=== PATIENT | male | born 1985 | race Caucasian/White ===

== ENCOUNTER 2016-05-04 15:39 | Emergency (ER) | payer SELFPAY ==
[2016-05-04 15:52] VITALS: BP 151/88
--- NOTE | 2016-05-04 15:57 | ER Document Report ---
ED Medical Screen (RME) - General Stated Complaint: ABDOMINAL/L LEG PAIN Mode of Arrival: Ambulatory Information source: Patient Notes: Patient presents to the emergency department complaints of right-sided abdominal pain possible abscess. Denies history of MRSA. Also reports sciatic pain. Patient is morbidly obese, right side of abdomen is more firm, ttp, no obvious pustule. I have greeted and performed a rapid initial assessment of this patient. A comprehensive ED assessment and evaluation of the patient, analysis of test results and completion of the medical decision making process will be conducted by additional ED providers. Physical Exam - Vital signs Vitals: Temp Pulse Resp BP Pulse Ox 98.4 F 105 H 24 H 151/88 H 92 05/04/16 15:51 05/04/16 15:51 05/04/16 15:51 05/04/16 15:51 05/04/16 15:51 Course - Vital Signs Vital signs: Temp Pulse Resp BP Pulse Ox 98.4 F 105 H 24 H 151/88 H 92 05/04/16 15:51 05/04/16 15:51 05/04/16 15:51 05/04/16 15:51 05/04/16 15:51
[2016-05-04 16:12] LABS: ABSOLUTE EOSINOPHILS # (AUTO) 0.1 10^3/uL (0.0-0.6); ABSOLUTE MONOCYTES (AUTO) 0.6 10^3/uL (0.1-1.4); ABSOLUTE NEUT (AUTO) 3.7 10^3/uL (1.7-8.2); BASOPHILS % (AUTO) 0.9 % (0-2); HEMATOCRIT 49.7 % (37.9-51.0); HGB HCT DIFFERENCE -1.7; LYMPHOCYTES % (AUTO) 18.2 % (13-45); MEAN CORPUSCULAR HEMOGLOBIN 29.1 pg (27.0-33.4); MEAN CORPUSCULAR HGB CONC 32.1 g/dL (32.0-36.0); MEAN CORPUSCULAR VOLUME 91 fl (80-97); MONOCYTES % (AUTO) 10.8 % (3-13); RED BLOOD COUNT 5.49 10^6/uL (4.35-5.55); RED CELL DISTRIBUTION WIDTH 17.3 % (11.5-14.0); SEGMENTED NEUTROPHILS % (AUTO) 69.1 % (42-78); WHITE BLOOD COUNT 5.3 10^3/uL (4.0-10.5)
[2016-05-04 18:32] LABS: BLOOD UREA NITROGEN 13 mg/dL (7-20); CALCIUM 9.7 mg/dL (8.4-10.2); CREATININE RESULT 0.84 mg/dL (0.52-1.25); GLUCOSE 87 mg/dL (75-110)
[2016-05-04 18:33] LABS: ALANINE AMINOTRANSFERASE 64 U/L (21-72); ALBUMIN 3.9 g/dL (3.5-5.0); ALKALINE PHOSPHATASE 82 U/L (38-126); ANION GAP 10 (5-19); ASPARTATE AMINO TRANSFERASE 56 U/L (17-59); BILIRUBIN,DIRECT 0.1 mg/dL (0.0-0.4); BILIRUBIN,TOTAL 0.7 mg/dL (0.2-1.3); CARBON DIOXIDE 35 mmol/L (22-30); CHLORIDE 98 mmol/L (98-107); POTASSIUM 4.2 mmol/L (3.6-5.0); SODIUM 142.9 mmol/L (137-145)
--- NOTE | 2016-05-04 19:46 | ER Document Report ---
ED GI/ - General Chief Complaint: Abscess Stated Complaint: ABDOMINAL/L LEG PAIN Time seen by provider: 19:41 Mode of Arrival: Ambulatory Information source: Patient Notes: 32-year-old male presents to ED for complaint of right-sided abdominal pain states the right side of his abdomen is former than the left. Also complaining of sciatic pain and a left knee pain. He states he's been told that he has a left anterior cruciate ligament tear but has not been fixed yet. His abdominal pain has been coming and going for the last 4-5 months worse for the last 2-3 weeks. This is an extremely obese man weighing 271.2 kg which is approximately 597 pounds TRAVEL OUTSIDE OF THE [place] IN LAST 30 DAYS: No - HPI Patient complains to provider of: Abdominal pain, Other - Chronic sciatic pain Onset: Other - Chronic Timing/Duration: Gradual Severity at maximum: Moderate Severity in ED: Moderate Pain Level: 4 Location: RUQ, RLQ Associated symptoms: Other - Swelling feet, back pain with sciatica. denies: Diarrhea, Nausea, Vomiting Exacerbated by: Movement, Walking Relieved by: Denies Similar symptoms previously: Yes Recently seen / treated by doctor: No - Related Data Allergies/Adverse Reactions: No Known Allergies Allergy (Unverified 05/04/16 15:55) Past Medical History - General Information source: Patient - Social History Smoking Status: Never Smoker Cigarette use (# per day): No Chew tobacco use (# tins/day): No Smoking Education Provided: No Frequency of alcohol use: Rare Drug Abuse: None Occupation: none Lives with: Family Family History: Reviewed & Not Pertinent Patient has suicidal ideation: No Patient has homicidal ideation: No - Past Medical History Cardiac Medical History: Reports: None, Hx Congestive Heart Failure, Other - States he's been told he has were around his heart and lungs Pulmonary Medical History: Reports: None EENT Medical History: Reports: None Neurological Medical History: Reports: None Endocrine Medical History: Reports: None Renal/ Medical History: Reports: Other - States he's been told he has kidney disease but not what type Malignancy Medical History: Reports None GI Medical History: Reports: None Musculoskeltal Medical History: Reports Hx Musculoskeletal Trauma, Reports Other - Swelling to bilateral feet with fungal infection Skin Medical History: Reports None Psychiatric Medical History: Reports: None Traumatic Medical History: Reports: None Infectious Medical History: Reports: None Past Surgical History: Reports: Hx Orthopedic Surgery - Right anterior cruciate ligament repair - Immunizations Immunizations up to date: Yes Hx Diphtheria, Pertussis, Tetanus Vaccination: Yes Review of Systems - Review of Systems Constitutional: No symptoms reported EENT: No symptoms reported Cardiovascular: No symptoms reported Respiratory: No symptoms reported Gastrointestinal: Abdominal pain. denies: Diarrhea, Nausea, Vomiting Genitourinary: No symptoms reported Male Genitourinary: No symptoms reported Musculoskeletal: No symptoms reported Skin: No symptoms reported Hematologic/Lymphatic: No symptoms reported Neurological/Psychological: No symptoms reported Physical Exam - Vital signs Vitals: Temp Pulse Resp BP Pulse Ox 98.4 F 105 H 24 H 151/88 H 92 05/04/16 15:51 05/04/16 15:51 05/04/16 15:51 05/04/16 15:51 05/04/16 15:51 Interpretation: Normal, Hypertensive, Tachycardic, Tachypneic, Other - 597 pounds - General General appearance: Appears well, Alert Notes: Extremely obese at 597 pounds - HEENT Head: Normocephalic, Atraumatic Eyes: Normal Pupils: PERRL - Respiratory Respiratory status: No respiratory distress Chest status: Nontender Breath sounds: Normal Chest palpation: Normal - Cardiovascular Rhythm: Regular Heart sounds: Normal auscultation Murmur: No - Abdominal Inspection: Morbidly Obese Distension: No distension Bowel sounds: Normal Tenderness: Tender - Right side of abdomen just above the umbilicus, Other - Very large obese abdomen unable to truly palpate throughout the abdomen. Did not feel any abscesses or any abnormalities. Organomegaly: No organomegaly - Back Back: Normal, Nontender - Extremities General upper extremity: Normal inspection, Nontender, Normal color, Normal ROM , Normal temperature General lower extremity: Normal inspection, Nontender, Normal color, Normal ROM , Normal temperature, Normal weight bearing. No: Komal's sign - Neurological Neuro grossly intact: Yes Cognition: Normal Orientation: AAOx4 Benitez Coma Scale Eye Opening: Spontaneous Benitez Coma Scale Verbal: Oriented [place] Coma Scale Motor: Obeys Commands Benitez Coma Scale Total: 15 Speech: Normal Motor strength normal: LUE, RUE, LLE, RLE Sensory: Normal - Psychological Associated symptoms: Normal affect, Normal mood - Skin Skin Temperature: Warm Skin Moisture: Dry Skin Color: Normal Course - Re-evaluation Re-evalutation: 05/04/16 19:49 This patient's mother is also at the bedside and she says that they sleep on the floor her on a mattress him straight on the floor. States the pain has been much worse since she's been sleeping on the floor. Patient complains of sciatic pain and right abdominal pain he states the right abdomen is firm but I do not see this. 05/04/16 22:19 Discussed this patient with Dr. Romero who suggested I consult the surgeon. The surgeon was Dr. Abdi was notified he came to the emergency room and saw the patient. He stated that he could not get a CT of his abdomen due to his size and that he was not qualified to do surgery on somebody his size that we would need to transfer the patient in order to care for the patient. The patient was angry that he could not eat he was angry that we could not do the CT here, he was angry that the surgeon said that he would not be able to do surgery on him. And he stated that he was going to leave AGAINST MEDICAL ADVICE. Patient was given discharge instructions concerning abdominal pain and the fact that he left AGAINST MEDICAL ADVICE. Patient was also given a short prescription of narcotics and Zofran. Patient was also given a list of local physicians to find himself a primary care doctor to follow-up on this pain. - Vital Signs Vital signs: Temp Pulse Resp BP Pulse Ox 98.4 F 105 H 24 H 151/88 H 92 05/04/16 15:51 05/04/16 15:51 05/04/16 15:51 05/04/16 15:51 05/04/16 15:51 - Laboratory Result Diagrams: 05/04/16 16:00 05/04/16 17:50 Laboratory results interpreted by me: 05/04/16 05/04/16 16:00 17:50 RDW 17.3 H Carbon Dioxide 35 H Discharge - Discharge Clinical Impression: Abdominal pain Qualifiers: Abdominal location: right upper quadrant Qualified Code(s): R10.11 - Right upper quadrant pain Disposition: AGAINST MEDICAL ADVICE Instructions: Family Physicians / Practices Additional Instructions: ABDOMINAL PAIN: There are many causes of abdominal pain. Pain can mean a serious problem requiring surgery (such as appendicitis). It can also be an innocent problem that goes away on its own (such as a viral infection). Often, time must pass to determine the cause of pain. The physician does not feel that hospitalization is necessary, at present. Things may change within the next 24 hours. Call the doctor or come back for re- examination if any problems occur, such as: (1) Pain that becomes more severe, steady, or becomes concentrated in one specific area. Also, pain that is more severe with movement or coughing. (2) Vomiting that persists or becomes more frequent. (3) Blood in the vomitus, urine, or bowel movements. Blood in the stool may have a tarry or black appearance. (4) Shaking chills or fever greater than 100 degrees F. (5) The abdomen becomes more distended or swollen. (6) Bowel movements cease. (7) Failure to improve as expected. ANTINAUSEA MEDICATION: You have been given a medication to suppress nausea and vomiting. This type of medication can be given as a shot, pill, or suppository. It will usually last for many hours. Pills and shots usually last six to eight hours, suppositories last about 12 hours. For the typical illness, only one or two doses of the medication may be necessary. Mild lightheadedness may occur. This type of medicine can cause drowsiness. Do not drive or operate dangerous machinery while under its influence. Do not mix with alcohol. See your doctor at once if you have muscle spasms or tightness, or uncontrollable motions (particularly of the neck, mouth, or jaw). Persistent vomiting or severe lightheadedness should also be evaluated by the physician. Oral Narcotic Medication You have been given a prescription for pain control. This medication is a narcotic. It's best taken with food, as nausea can result if taken on an empty stomach. Don't operate machinery or drive within six hours of taking this medication. Do not combine this medicine with alcohol, or with any medication which can cause sedation (such as cold tablets or sleeping pills) unless you get permission from the physician. Narcotics tend to cause constipation. If possible, drink plenty of fluids and eat a diet high in fiber and fruits. You have decided to go home AGAINST MEDICAL ADVICE. You have decided that you did not want to stay to be transferred to have a CAT scan to try to determine what your pain is in your right upper abdomen. I have discussed your labs with you and have given you a copy of your labs. You will need to follow-up for your abdominal pain with your primary doctor and possibly a surgeon. You may need a CAT scan to determine what your pain is in your abdomen. We do not have a CAT scan large enough at [facility]. FOLLOW-UP CARE: If you have been referred to a physician for follow-up care, call the physician s office for an appointment as you were instructed or within the next two days. If you experience worsening or a significant change in your symptoms, notify the physician immediately or return to the Emergency Department at any time for re-evaluation. Prescriptions: Hydrocodone/Acetaminophen [[place] 5-325 mg Tablet] 1 tab PO Q6HP PRN #7 tablet PRN Reason: Ondansetron [Zofran Odt 4 mg Tablet] 1 tab PO Q6H #15 tab.rapdis Forms: Elevated Blood Pressure
--- NOTE | 2016-05-04 22:53 | CONSULTATION REPORT E ---
Consultation Report NAME: RITA PETERS : 1985 AGE: 31Y DATE: 05/04/2016 TO: NIDHI MORRELL M.D. FROM: LUCIO PAYNE Requesting Physician HISTORY OF PRESENT ILLNESS: Thank you for asking me to see this 31-year-old, morbidly obese male with BMI of 81, weighing about 600 pounds who comes to the emergency room complaining of right side abdominal pain, which has been going on for the past few days. Not associated with nausea or vomiting. P.o. is well tolerated. His bowels moved yesterday with normal stools. No blood noted. No emesis, hematemesis identified. The patient reports flatus. No fevers, no chills or fever reported. He is also complaining of left thigh "nerve"pain more intense of the right side abdominal pain. PAST MEDICAL HISTORY: Significant for: 1. Hypertension. 2. Morbid obesity. 3. Sleep apnea. ALLERGIES: None. MEDICATIONS: The patient takes: 1. Blood pressure medications, unspecified. 2. Flexeril 10 mg t.i.d. 3. Lasix, unspecified dose. The patient has not been using it for a while. 4. Gabapentin 10 mg p.o. t.i.d. SOCIAL HISTORY: The patient denies abuse of alcohol, drugs or tobacco. FAMILY HISTORY: Has been investigated and is noncontributory to the reported condition. REVIEW OF SYSTEMS: The 12-point systems is positive for hypertension, morbid obesity and nerve pain. REVIEW OF LABS: Electrolytes: BUN, creatinine, liver profile all within normal limits. CBC is normal with white blood cell count of 5.3, H and H 16 and 49. PHYSICAL EXAMINATION: GENERAL: The patient is alert, oriented x3. He is in slight distress because of right-sided pain. He is also complaining of left thigh and leg pain. VITAL SIGNS: Stable. Temperature 98.4, pulse 105, blood pressure 151/88, respirations 24, saturation 92% on room air. HEENT: HEENT: Second through 12 cranial nerves are normal. NECK: Obese, but supple. No mass. LUNGS: Clear to auscultation bilaterally. CHEST: Symmetric bilaterally. HEART: Regular rhythm and rate. ABDOMEN: Large pannus, nondistended. Slightly tender in the right lateral quadrant just to the level of the umbilicus. EXTREMITIES: Upper and lower extremities equal and symmetric bilaterally without deficits. NEUROLOGIC SYSTEM: Equal and symmetric bilaterally without deficits. ASSESSMENT: 1. Right side abdominal pain of unknown cause. 2. Normal blood work, increased CBC, BMP and liver profile. 3. Physical exam overall inconclusive due to the slight tenderness in the right lateral aspect of the abdomen without pinpoint tenderness; in addition, the physical exam is greatly impaired by large size of the patient's abdominal pannus. PLAN: 1. My recommendation is that the patient goes to a facility where he can undergo a CT scan of the abdomen and pelvis obtained by a machine able to tolerate his weight. DICTATING PHYSICIAN: NIDHI MORRELL M.D. [id number] PHY#: [id number] ID: [id number] JOB#: [id number] ACCT: [id number] cc:NIDHI MORRELL M.D. > MTDD
== END 2016-05-04 22:10 | disposition left against medical advice (07) ==
LOC: EDBD 15:39 → ER 15:39
DX: R10.11 Right upper quadrant pain (principal); R10.31 Right lower quadrant pain; M25.562 Pain in left knee; M54.30 Sciatica, unspecified side; G89.29 Other chronic pain; M54.9 Dorsalgia, unspecified; M79.89 Other specified soft tissue disorders; E66.01 Morbid (severe) obesity due to excess calories; Z68.45 Body mass index [BMI] 70 or greater, adult; Z53.29 Procedure and treatment not carried out because of patient's decision for other reasons
CPT/HCPCS: 36415; 80053; 85025; 99283

== ENCOUNTER 2016-05-26 13:01 | Emergency (ER) | payer SELFPAY ==
[2016-05-26] MEDS ORDERED: FUROSEMIDE 40 MG TABLET PO ONE (13:15)
--- NOTE | 2016-05-26 13:19 | ER Document Report ---
ED Medical Screen (RME) - General Stated Complaint: LEG AND FEET PAIN, SWELLING Notes: This morbidly obese 31-year-old male comes emergency room complaining of pain and swelling to his lower extremities. He ran out of his Lasix possibly 2-3 weeks ago. He moved here from [place] 7 weeks ago and does not have a local doctor. His prescription bottle as states he is to take 40 mg once daily, he reports he has been taking 80 mg a day because that is what works. He was seen here on 05/04/2016 complaining of lower extremity pain and received a prescription for hydrocodone. There is no mention about being out of Lasix or soon to be out of Lasix. I have greeted and performed a rapid initial assessment of this patient. A comprehensive ED assessment and evaluation of the patient, analysis of test results and completion of the medical decision making process will be conducted by additional ED providers. TRAVEL OUTSIDE OF THE [place] IN LAST 30 DAYS: No - Related Data Allergies/Adverse Reactions: No Known Allergies Allergy (Unverified 05/04/16 15:55) Past Medical History - Past Medical History Cardiac Medical History: Reports: Hx Congestive Heart Failure Renal/ Medical History: Denies: Hx Peritoneal Dialysis Musculoskeltal Medical History: Reports Hx Musculoskeletal Trauma Past Surgical History: Reports: Hx Orthopedic Surgery - Right anterior cruciate ligament repair - Immunizations Immunizations up to date: Yes Hx Diphtheria, Pertussis, Tetanus Vaccination: Yes Physical Exam - Vital signs Vitals: Temp Pulse Resp BP Pulse Ox 98.5 F 96 24 H 202/114 H 94 05/26/16 13:14 05/26/16 13:14 05/26/16 13:14 05/26/16 13:14 05/26/16 13:14 Course - Vital Signs Vital signs: Temp Pulse Resp BP Pulse Ox 98.5 F 96 24 H 202/114 H 94 05/26/16 13:14 05/26/16 13:14 05/26/16 13:14 05/26/16 13:14 05/26/16 13:14
[2016-05-26 13:41] LABS: ABSOLUTE EOSINOPHILS # (AUTO) 0.1 10^3/uL (0.0-0.6); ABSOLUTE LYMPHOCYTES (AUTO) 0.8 10^3/uL (0.5-4.7); ABSOLUTE MONOCYTES (AUTO) 0.5 10^3/uL (0.1-1.4); ABSOLUTE NEUT (AUTO) 5.2 10^3/uL (1.7-8.2); BASOPHILS % (AUTO) 0.7 % (0-2); EOSINOPHILS % (AUTO) 1.2 % (0-6); HEMATOCRIT 47.3 % (37.9-51.0); HEMOGLOBIN 15.5 g/dL (13.5-17.0); HGB HCT DIFFERENCE -0.8; LYMPHOCYTES % (AUTO) 12.7 % (13-45); MEAN CORPUSCULAR HEMOGLOBIN 29.8 pg (27.0-33.4); MEAN CORPUSCULAR HGB CONC 32.7 g/dL (32.0-36.0); MEAN CORPUSCULAR VOLUME 91 fl (80-97); MONOCYTES % (AUTO) 7.6 % (3-13); RED CELL DISTRIBUTION WIDTH 16.9 % (11.5-14.0); SEGMENTED NEUTROPHILS % (AUTO) 77.8 % (42-78); WHITE BLOOD COUNT 6.7 10^3/uL (4.0-10.5)
[2016-05-26 14:02] LABS: ALANINE AMINOTRANSFERASE 41 U/L (21-72); ALBUMIN 3.8 g/dL (3.5-5.0); ALKALINE PHOSPHATASE 88 U/L (38-126); ANION GAP 9 (5-19); ASPARTATE AMINO TRANSFERASE 29 U/L (17-59); BILIRUBIN,DIRECT 0.3 mg/dL (0.0-0.4); BILIRUBIN,TOTAL 0.7 mg/dL (0.2-1.3); BLOOD UREA NITROGEN 16 mg/dL (7-20); CALCIUM 9.2 mg/dL (8.4-10.2); CARBON DIOXIDE 33 mmol/L (22-30); CHLORIDE 101 mmol/L (98-107); CREATININE RESULT 0.83 mg/dL (0.52-1.25); GLUCOSE 84 mg/dL (75-110); POTASSIUM 4.8 mmol/L (3.6-5.0); SODIUM 143.3 mmol/L (137-145); TOTAL PROTEIN 6.9 g/dL (6.3-8.2)
--- NOTE | 2016-05-26 14:39 | ER Document Report ---
ED Extremity Problem, Lower - General Chief Complaint: Swelling of Lower Extremity Stated Complaint: LEG AND FEET PAIN, SWELLING Mode of Arrival: Wheelchair Information source: Patient Notes: Patient presents complaining of bilateral lower extremity swelling for the past 2 weeks. Patient complains of pain with ambulation because he feels like his skin is stretching excessively. Patient has a history of peripheral edema and typically takes Lasix treat his symptoms but ran out of his Lasix 2 weeks ago. He states that he takes metoprolol daily but ran out yesterday of his metoprolol. Patient denies any leg injury. Patient states that he did drive here from [place] 2 months ago. Patient states that he was told that he may possibly have had a clot in his leg previously, but states that they weren't certain and simply treated him by giving him aspirin daily for several months. Patient denies any chest pain or shortness of breath. TRAVEL OUTSIDE OF THE [place] IN LAST 30 DAYS: No - HPI Patient complains to provider of: Swelling Occurred: Other - 2 weeks Onset/Duration: Gradual Quality of pain: Fullness Pain Level: 3 Context: Recent travel - 2 months ago. denies: Recent immobilization Recent injury: No Associated symptoms: Painful ambulation. denies: Chest pain, Dizzy, Fever, Short of breath, Unable to bear weight Exacerbated by: Walking Relieved by: Rest - Related Data Allergies/Adverse Reactions: No Known Allergies Allergy (Verified 05/26/16 14:32) Past Medical History - General Information source: Patient - Social History Smoking Status: Never Smoker Frequency of alcohol use: Occasional Drug Abuse: None Occupation: none Lives with: Family Family History: Reviewed & Not Pertinent Patient has suicidal ideation: No Patient has homicidal ideation: No - Past Medical History Cardiac Medical History: Reports: Hx Congestive Heart Failure, Hx Hypertension Renal/ Medical History: Denies: Hx Peritoneal Dialysis Musculoskeltal Medical History: Reports Hx Musculoskeletal Trauma Past Surgical History: Reports: Hx Orthopedic Surgery - Right anterior cruciate ligament repair - Immunizations Immunizations up to date: Yes Hx Diphtheria, Pertussis, Tetanus Vaccination: Yes Review of Systems - Review of Systems Constitutional: No symptoms reported. denies: Fever, Recent illness EENT: No symptoms reported Cardiovascular: Edema - Bilateral lower lower extremities. denies: Chest pain, Palpitations, Orthopnea Respiratory: No symptoms reported. denies: Cough, Short of breath Gastrointestinal: No symptoms reported. denies: Nausea, Vomiting Genitourinary: No symptoms reported Male Genitourinary: No symptoms reported Musculoskeletal: No symptoms reported, Leg swelling Skin: Rash - To bilateral feet for many months Hematologic/Lymphatic: No symptoms reported Neurological/Psychological: No symptoms reported. denies: Weakness Physical Exam - Vital signs Vitals: Temp Pulse Resp BP Pulse Ox 98.5 F 96 24 H 202/114 H 94 05/26/16 13:14 05/26/16 13:14 05/26/16 13:14 05/26/16 13:14 05/26/16 13:14 - General General appearance: Appears well, Alert In distress: None - HEENT Head: Normocephalic, Atraumatic Eyes: Normal Mouth/Lips: Normal Mucous membranes: Normal Neck: Normal, Supple. No: Lymphadenopathy - Respiratory Respiratory status: No respiratory distress Chest status: Nontender Breath sounds: Normal. No: Productive cough, Rales, Rhonchi, Stridor, Wheezing Chest palpation: Normal - Cardiovascular Rhythm: Regular Heart sounds: S1 appreciated, S2 appreciated Murmur: No - Abdominal Inspection: Morbidly Obese Bowel sounds: Normal Tenderness: Nontender - Back Back: Normal, Nontender - Extremities General upper extremity: Normal inspection, Normal ROM General lower extremity: Edema - 2-3+ Bilateral lower extremities Calf: Other - 2-3+ edema, mild erythema to bilateral calves - Neurological Neuro grossly intact: Yes Cognition: Normal Benitez Coma Scale Eye Opening: Spontaneous [place] Coma Scale Verbal: Oriented Benitez Coma Scale Motor: Obeys Commands [place] Coma Scale Total: 15 - Psychological Associated symptoms: Normal affect, Normal mood - Skin Skin Temperature: Warm Skin Moisture: Dry Skin Color: Erythema - Bilateral calf Skin irregularity: Rash - Scaling rash to bilateral feet Course - Re-evaluation Re-evalutation: 05/26/16 15:07 Doppler truck technician to bedside for examination 05/26/16 15:45 Spoke with pharmacy analyst at [facility] to confirm patient's medication list with dosages. 05/26/16 15:[address] Bowie who is reading Doppler reports and states that patient' s study was negative for DVT. - Vital Signs Vital signs: Temp Pulse Resp BP Pulse Ox 98.1 F 89 18 170/93 H 95 05/26/16 16:22 05/26/16 16:22 05/26/16 16:22 05/26/16 16:22 05/26/16 16:22 - Laboratory Result Diagrams: 05/26/16 13:29 05/26/16 13:29 Laboratory results interpreted by me: 05/26/16 05/26/16 13:29 13:29 RDW 16.9 H Lymphocytes % 12.7 L Carbon Dioxide 33 H 05/26/16 16:00 Labs- Entire Visit 05/26/16 05/26/16 13:29 13:29 WBC 6.7 RBC 5.20 Hgb 15.5 Hct 47.3 MCV 91 MCH 29.8 MCHC 32.7 RDW 16.9 H Plt Count 169 Seg Neutrophils % 77.8 Lymphocytes % 12.7 L Monocytes % 7.6 Eosinophils % 1.2 Basophils % 0.7 Absolute Neutrophils 5.2 Absolute Lymphocytes 0.8 Absolute Monocytes 0.5 Absolute Eosinophils 0.1 Absolute Basophils 0.0 Sodium 143.3 Potassium 4.8 Chloride 101 Carbon Dioxide 33 H Anion Gap 9 BUN 16 Creatinine 0.83 Est GFR ( Amer) > 60 Est GFR (Non-Af Amer) > 60 Glucose 84 Calcium 9.2 Total Bilirubin 0.7 Direct Bilirubin 0.3 Indirect Bilirubin Not Reportable Neonat Total Bilirubin Not Reportable AST 29 ALT 41 Alkaline Phosphatase 88 Total Protein 6.9 Albumin 3.8 05/26/16 20:56 Discharge - Discharge Clinical Impression: Hx of essential hypertension, Peripheral edema Cellulitis Qualifiers: Site of cellulitis: extremity Site of cellulitis of extremity: lower extremity Laterality: right Qualified Code(s): L03.115 - Cellulitis of right lower limb Condition: Stable Disposition: HOME, SELF-CARE Instructions: High Blood Pressure, Requiring Treatment ([facility]), Edema, Peripheral ([facility]), Cellulitis ([facility]), Cephalexin ([facility]) Additional Instructions: Return immediately for any new or worsening symptoms Followup with a primary care provider, call tomorrow to make a followup appointment Prescriptions: Cephalexin Monohydrate [Keflex 500 mg Capsule] 500 mg PO Q6H 7 Days Furosemide [Lasix] 40 mg PO DAILY #30 tablet Metoprolol Succinate 25 mg PO DAILY #30 tab.er.24h Forms: Elevated Blood Pressure Referrals: [facility] [Provider Group] - Follow up as needed [facility] [Provider Group] - Follow up tomorrow
[2016-05-26] MEDS ORDERED: METOPROLOL SUCCINATE 25 MG TAB.SR.24H PO ONE (15:46)
[2016-05-26 16:27] VITALS: BP 170/93
--- NOTE | 2016-05-26 16:31 | XCELERA REPORT ---
[address] [address] Lower Extremity Venous Evaluation Name: RITA PETERS Srini II Age: 31 yrs Gender: Male : 1985 Patient Status: Emergency Patient Location: ER Study Date: 05/26/2016 03:15 PM Procedure: Color flow and duplex imaging bilaterally of the veins of the lower extremities as well as the Common Femoral veins. Reason For Study: LE pain,swelling Ordering Physician: SARIAH LAZAR Performed By: Mariella Vizcarra Right Sided Venous Evaluation Patient's weight of 619 pounds makes comprehensive venous evaluation difficult. Normal vessel filling wall to wall, compression and augmentation as well as Colour flow down to the infrageniculate veins. Left Sided Venous Evaluation Patient's weight of 619 pounds makes comprehensive venous evaluation difficult. Normal vessel filling wall to wall, compression and augmentation as well as Colour flow down to the infrageniculate veins. Critical Findings Called in to Magnolia Lazar at about 1600. Also went over weight limitations with MELVI Blum at 1630. Interpretation Summary No duplex evidence of DVT or obstruction in the bilateral lower extremities. : SARIAH LAZAR > Andres Bowie
== END 2016-05-26 16:33 | disposition home or self-care (01) ==
LOC: ER 13:01
DX: L03.115 Cellulitis of right lower limb (principal); R60.9 Edema, unspecified; R21 Rash and other nonspecific skin eruption; I50.9 Heart failure, unspecified; I11.0 Hypertensive heart disease with heart failure
CPT/HCPCS: 36415; 80053; 85025; 93970; 99284

== ENCOUNTER 2019-12-01 09:12 | Day surgery (SDC) | payer MEDICARE, MEDICAID ==
[2019-11-28 11:39] LABS: ABSOLUTE BASOPHILS # (AUTO) 0.1 10^3/uL (0.0-0.2); ABSOLUTE EOSINOPHILS # (AUTO) 0.2 10^3/uL (0.0-0.6); ABSOLUTE LYMPHOCYTES (AUTO) 1.1 10^3/uL (0.5-4.7); ABSOLUTE MONOCYTES (AUTO) 0.6 10^3/uL (0.1-1.4); ABSOLUTE NEUT (AUTO) 6.2 10^3/uL (1.7-8.2); BASOPHILS % (AUTO) 0.7 % (0-2); EOSINOPHILS % (AUTO) 2.1 % (0-6); HEMATOCRIT 43.8 % (37.9-51.0); HEMOGLOBIN 14.7 g/dL (13.5-17.0); LYMPHOCYTES % (AUTO) 13.9 % (13-45); MEAN CORPUSCULAR HEMOGLOBIN 30.1 pg (27.0-33.4); MEAN CORPUSCULAR HGB CONC 33.5 g/dL (32.0-36.0); MEAN CORPUSCULAR VOLUME 90 fl (80-97); MONOCYTES % (AUTO) 7.8 % (3-13); PLATELET COUNT 198 10^3/uL (150-450); RED BLOOD COUNT 4.87 10^6/uL (4.35-5.55); RED CELL DISTRIBUTION WIDTH 15.4 % (11.5-14.0); SEGMENTED NEUTROPHILS % (AUTO) 75.5 % (42-78); TOTAL CELLS COUNTED % (AUTO) 100 %; WHITE BLOOD COUNT 8.2 10^3/uL (4.0-10.5)
[2019-11-28 12:11] LABS: ANION GAP 11 (5-19); BLOOD UREA NITROGEN 20 mg/dL (7-20); CALCIUM 9.4 mg/dL (8.4-10.2); CARBON DIOXIDE 30 mmol/L (22-30); CHLORIDE 100 mmol/L (98-107); GLUCOSE 114 mg/dL (75-110)
--- NOTE | 2019-11-28 18:50 | EKG REPORT ---
SEVERITY:- OTHERWISE NORMAL ECG - SINUS TACHYCARDIA : Confirmed by: Dougie Klein MD 28-Nov-2019 18:49:33
[~2019-12-01 09:12] MED LIST: KETAMINE HCL INJ 500 MG/10 ML VIAL ONE; MIDAZOLAM 2 MG/2 ML INJ ONE; PROPOFOL INJ 200 MG/20 ML VIAL IV ONE
[2019-12-01] MEDS ORDERED: PROPOFOL INJ 200 MG/20 ML VIAL IV ONE (11:30)
[2019-12-01] MEDS ORDERED: MEPERIDINE HCL/PF INJ 25 MG/1 ML DISP.SYRIN IV PRN (11:55)
[2019-12-01] MEDS ORDERED: ONDANSETRON HCL INJ/PF 4 MG/2 ML SDV IV PRN (11:55)
[2019-12-01] MEDS ORDERED: FENTANYL CITRATE INJ/PF 100 MCG/2 ML AMPUL IV PRN ×3 (11:55)
[2019-12-01] MEDS ORDERED: DIPHENHYDRAMINE HCL 50 MG/ML VIAL IV PRN (11:55)
--- NOTE | 2019-12-01 13:33 | Operative Report ---
Operative Report DATE OF SURGERY: 12/01/19 Operative Report: The risk, benefits and alternatives of the procedure including the risks of bleeding, perforation requiring surgery have been explained to the patient in detail and informed consent has been obtained. Patient is taken back to the operating room and placed in left, lateral decubital position. Timeout was called. Propofol medication is administered. Rectal examination is done which did not reveal any masses, tears or fissures. An Olympus videoscope was introduced into the patient's rectum. It is carefully advanced all the way to the cecum. The cecum was identified by the usual anatomical landmarks including the ileocecal valve as well as the appendiceal office. Photodocumentation is obtained. Scope was then sequentially pulled back via the various segments of the colon including the ascending colon, hepatic flexure, transverse colon, splenic flexure, descending colon and finally into the rectosigmoid portions of the colon. Retroflexion maneuver is performed. PREOPERATIVE DIAGNOSIS: Change of bowel habits POSTOPERATIVE DIAGNOSIS: Right colon inflammation status post biopsy. Internal hemorrhoids. Mild diverticulosis OPERATION: Colonoscopy with biopsy SURGEON: NANCY AGUILERA ANESTHESIA: LMAC TISSUE REMOVED OR ALTERED: As noted above. COMPLICATIONS: None. ESTIMATED BLOOD LOSS: None. INTRAOPERATIVE FINDINGS: As noted above. PROCEDURE: Patient tolerated the procedure well. No immediate postprocedure complications are noted. Patient is discharged in good condition. Discharge date 12/01/2019. Discharge diet: Regular. Discharge activity: Regular. 2 to 3-week follow-up to discuss findings. Patient is instructed to call the office or proceed to the emergency room should there be any further problems or questions. Wait on the pathology.
[2019-12-01 13:34] VITALS: BP 131/81
== END 2019-12-01 13:10 | disposition home or self-care (01) ==
LOC: END 09:12
PROVIDERS: ATTEND Internal Medicine Gastroenterology
DX: R19.4 Change in bowel habit (principal); K57.90 Diverticulosis of intestine, part unspecified, without perforation or abscess without bleeding; K52.9 Noninfective gastroenteritis and colitis, unspecified; K64.8 Other hemorrhoids; E66.9 Obesity, unspecified; E07.9 Disorder of thyroid, unspecified; I10 Essential (primary) hypertension; Z79.890 Hormone replacement therapy; Z79.899 Other long term (current) drug therapy; Z80.0 Family history of malignant neoplasm of digestive organs; Z03.818 Encounter for observation for suspected exposure to other biological agents ruled out; Z68.45 Body mass index [BMI] 70 or greater, adult
CPT/HCPCS: 45380; 93005; 36415 ×2; 84132; 85025; 80048; 88305 ×2; 93010; 00811; U0003; J2704; C9803; 811; 87635; J2250; J3490